=== PATIENT | female | born 2000 | race Caucasian/White ===

== ENCOUNTER 2024-08-26 08:24 | Emergency (ER) | payer SELFPAY ==
[~2024-08-26] VITALS: Ht 167.6 cm; Wt 100.0 kg
[2024-08-26 08:40] VITALS: BP 126/78; TEMP 36.72516; O2SAT 100
[2024-08-26] MEDS: ALBUTEROL (0.083%) 2.5MG/3ML NEB HHN ONE (10:45)
[2024-08-26] MEDS: PREDNISONE 20MG TABLET PO ONE (11:03)
[2024-08-26 11:04] VITALS: PULSE 89; RESP 20; O2SAT 93
[2024-08-26] MEDS ORDERED: P20 MT (11:19)
[2024-08-26] MEDS ORDERED: ALBU18HF2 IH (11:19)
== END 2024-08-26 11:34 | disposition home or self-care (01) ==
LOC: ER 08:24
DX: R05.9 Cough, unspecified (principal); R06.2 Wheezing; Z79.52 Long term (current) use of systemic steroids
CPT/HCPCS: 81025; 71045; 99283; J7512; Z7610